=== PATIENT | male | born 1990 | race Caucasian/White ===

== ENCOUNTER 2017-08-19 14:40 | Emergency (ER) | payer OTHER ==
[~2017-08-19] VITALS: Ht 172.7 cm; Wt 89.9 kg
[2017-08-19 15:05] VITALS: BP 142/64
--- NOTE | 2017-08-19 16:37 | NUR ---
Andrew castellano in [facility] - 08/19/17 at 1807 by MEDSUZANNE Patient being evaluated by physician at bedside.
--- NOTE | 2017-08-19 17:07 | NUR ---
C/O INTERMITTENT RT WRIST PAIN WORSE WHEN STARTED WITH HIS NEW JOB ABOUT 4 MONTHS AGO HX; DENIES. RX; DENIES. PATIENT STATES PAIN OF 7/10 AT THIS TIME; VSS; PATIENT POSITIONED FOR COMFORT; HOB ELEVATED; BEDRAILS UP X2; BED DOWN. ER MD MADE AWARE OF PT STATUS.
--- NOTE | 2017-08-19 17:08 | NUR ---
PT AMBULATES TO CHAIR A
--- NOTE | 2017-08-19 17:37 | NUR ---
Patient being evaluated by physician at bedside.
[2017-08-19 18:06] VITALS: BP 140/63
== END 2017-08-19 18:06 | disposition home or self-care (01) ==
LOC: MED 14:40
DX: M25.531 Pain in right wrist (principal)
CPT/HCPCS: 73110; 99284